=== PATIENT | male | born 1980 | race Caucasian/White ===

== ENCOUNTER 2016-06-30 01:11 | Emergency (ER) | payer MEDICAID ==
[2016-06-30] MEDS ORDERED: DEXAMETHASONE 10 MG/ML VIAL PO STA (01:42)
[2016-06-30] MEDS ORDERED: ALBUTEROL 8 GM INHALER INH STA (01:42)
[2016-06-30] MEDS ORDERED: AZITHROMYCIN 250 MG TABLET PO STA (01:43)
[2016-06-30] MEDS ORDERED: DEXAMETHASONE 10 MG/ML VIAL ONE (01:48)
[2016-06-30] MEDS ORDERED: AZITHROMYCIN 250 MG TABLET PO ONE (01:48)
[2016-06-30] MEDS ORDERED: ALBUTEROL 8 GM INHALER INH ONE (01:48)
== END 2016-06-30 02:01 | disposition home or self-care (01) ==
DX: J45.901 Unspecified asthma with (acute) exacerbation (principal); H66.90 Otitis media, unspecified, unspecified ear; F17.200 Nicotine dependence, unspecified, uncomplicated
CPT/HCPCS: 99283; A9270

== ENCOUNTER 2016-11-30 18:03 | Emergency (ER) | payer MEDICAID ==
--- NOTE | 2016-11-30 18:46 | ED Physician Documentation ---
PD HPI MHE - History obtained from History obtained from: Patient - History of Present Illness Primary symptom: Other (36-year-old gentleman with history of moderate asthma presents with mild suicidal ideation without current plan and depression ongoing for 1 month due to social issues. No ongoing alcohol or drug use he says. Would like to be considered for voluntary hospitalization.) <Stevenson Verduzco - Last Filed: 11/30/16 18:45> <William Angel - Last Filed: 12/01/16 18:55> - Stated complaint Stated Complaint: MHE - Chief complaint Chief Complaint: MHE Review of Systems Ten Systems: 10 systems reviewed and negative Constitutional: reports: Reviewed and negative Nose: reports: Reviewed and negative Throat: reports: Reviewed and negative Cardiac: reports: Reviewed and negative <Stevenson Verduzco - Last Filed: 11/30/16 18:45> PD PAST MEDICAL HISTORY - Past Medical History Cardiovascular: None Respiratory: Asthma Neuro: None Endocrine/Autoimmune: None GI: None : None HEENT: None Psych: None Musculoskeletal: Chronic back pain Derm: None - Past Surgical History Past Surgical History: Yes General: Gastric surgery - Social History Does the pt smoke?: Yes Smoking Status: Current every day smoker Does the pt drink ETOH?: No Does the pt have substance abuse?: No - Family History Family history: reports: Non contributory - Immunizations Immunizations are current?: Yes - POLST Patient has POLST: No <Stevenson Verduzco - Last Filed: 11/30/16 18:45> <William Angel - Last Filed: 12/01/16 18:55> - Present Medications Home Medications: Ambulatory Orders Medication Instructions Recorded Confirmed Albuterol Sulf [Ventolin Hfa 1 - 2 puffs INH Q4HR PRN #1 inhaler 06/30/16 Inhaler] Levothyroxine Sodium [Synthroid] 150 mcg PO DAILY #30 tablet 12/01/16 - Allergies Allergies/Adverse Reactions: Allergies Allergy/AdvReac Type Severity Reaction Status Date / Time Sulfa (Sulfonamide Allergy Severe Respiratory Verified 11/30/16 18:10 Antibiotics) PD ED PE NORMAL - Vitals Vital signs reviewed: Yes - General General: Alert and oriented X 3, Other (Despondent with poor eye contact) - HEENT HEENT: PERRL, EOMI - Neck Neck: Supple, no meningeal sign, No bony TTP - Cardiac Cardiac: RRR, No murmur - Respiratory Respiratory: No respiratory distress, Clear bilaterally - Abdomen Abdomen: Soft, Non tender - Derm Derm: Normal color, Warm and dry - Extremities Extremities: No edema, No calf tenderness / cord - Neuro Neuro: Alert and oriented X 3, head waitress 2-12 intact, No motor deficit, No sensory deficit, Normal speech - Psych Psych: Normal affect, Other (Depressed) <Stevenson Verduzco - Last Filed: 11/30/16 18:45> - Vitals Vitals: Vital Signs - 24 hr 11/30/16 12/01/16 12/01/16 23:11 01:44 05:55 Temperature 36.8 C Heart Rate 57 L 60 59 L Respiratory 14 14 18 Rate Blood Pressure 104/49 L 131/65 H 125/71 O2 Saturation 97 98 97 12/01/16 10:50 Temperature Heart Rate 62 Respiratory 15 Rate Blood Pressure 114/62 O2 Saturation 99 Oxygen O2 Source Room air - Labs Labs: Laboratory Tests 11/30/16 11/30/16 11/30/16 18:45 19:00 19:00 WBC 6.9 RBC 4.85 Hgb 15.3 Hct 44.2 MCV 91.1 MCH 31.5 H MCHC 34.6 RDW 13.4 Plt Count 217 MPV 7.8 Neut # 4.6 Lymph # 1.6 [place] # 0.5 Eos # 0.2 Baso # 0.1 Absolute Nucleated RBC 0.00 Nucleated RBCs 0.0 Sodium 139 Potassium 3.9 Chloride 104 Carbon Dioxide 28 Anion Gap 7.0 BUN 13 Creatinine 1.0 Estimated GFR (MDRD) 84 L Glucose 101 H Calcium 9.5 Total Bilirubin 1.3 H AST 66 H ALT 120 H Alkaline Phosphatase 64 Total Protein 8.0 Albumin 4.6 Globulin 3.4 Albumin/Globulin Ratio 1.4 Lipase 23 TSH Thyroxine (T4) T3 Uptake Urine Color YELLOW Urine Clarity CLEAR Urine pH 6.0 Ur Specific [place] 1.015 Urine Protein NEGATIVE Urine Glucose (UA) NEGATIVE Urine Ketones NEGATIVE Urine Occult Blood NEGATIVE Urine Nitrite NEGATIVE Urine Bilirubin NEGATIVE Urine Urobilinogen 0.2 (NORMAL) Ur Leukocyte Esterase NEGATIVE Ur Microscopic Review NOT INDICATED Urine Culture Comments NOT INDICATED Urine Opiates Screen NEGATIVE Ur Oxycodone Screen NEGATIVE Urine Methadone Screen NEGATIVE Ur Propoxyphene Screen NEGATIVE Ur Barbiturates Screen NEGATIVE Ur Tricyclics Screen NEGATIVE Ur Phencyclidine Scrn NEGATIVE Ur Amphetamine Screen POSITIVE H U Methamphetamines Scrn POSITIVE H U Benzodiazepines Scrn NEGATIVE Urine Cocaine Screen NEGATIVE U Cannabinoids Screen NEGATIVE Ethyl Alcohol < 5.0 11/30/16 12/01/16 12/01/16 19:00 09:08 09:08 WBC RBC Hgb Hct MCV MCH MCHC RDW Plt Count MPV Neut # Lymph # [place] # Eos # Baso # Absolute Nucleated RBC Nucleated RBCs Sodium Potassium Chloride Carbon Dioxide Anion Gap BUN Creatinine Estimated GFR (MDRD) Glucose Calcium Total Bilirubin AST ALT Alkaline Phosphatase Total Protein Albumin Globulin Albumin/Globulin Ratio Lipase TSH 55.98 H Thyroxine (T4) 3.73 L T3 Uptake 41.9 Urine Color Urine Clarity Urine pH Ur Specific [place] Urine Protein Urine Glucose (UA) Urine Ketones Urine Occult Blood Urine Nitrite Urine Bilirubin Urine Urobilinogen Ur Leukocyte Esterase Ur Microscopic Review Urine Culture Comments Urine Opiates Screen Ur Oxycodone Screen Urine Methadone Screen Ur Propoxyphene Screen Ur Barbiturates Screen Ur Tricyclics Screen Ur Phencyclidine Scrn Ur Amphetamine Screen U Methamphetamines Scrn U Benzodiazepines Scrn Urine Cocaine Screen U Cannabinoids Screen Ethyl Alcohol PD MEDICAL DECISION MAKING <Stevenson Verduzco - Last Filed: 11/30/16 18:45> - ED course Complexity details: reviewed old records, reviewed results, re-evaluated patient , considered differential, d/w patient <William Angel - Last Filed: 12/01/16 18:55> - ED course ED course: 36-year-old gentleman with depression and vague suicidal ideation without current plan. Offered to discharge and to come back for social work in the morning he prefers to stay overnight for evaluation in the morning. No indication for involuntary hold or MHP evaluation at this juncture. (Stevenson Verduzco) 36 y/o male with a history of asthma and substance abuse recently has not felt well and has developed anger and feels like "I just want to take a hammer and beat someone's head" he notes this is no one specific and then he states he just wants to take a gun and shoot himself in the head. He has increased sleep and depression over the past 2 months and today he has a low T4 and a TSH of > 55. I have discussed treatment with the patient and he is receptive and states that he did do some treatment about 10 years ago when he got out of [place]way but he has been non-compliant since. The DCR was consulted in the case as the patient demonstrated homicidal ideation directed at his mother and has a prior history of arrest for assault. The patient has no specific plan and the DCR has arranged for urgent medication evaluation to be done in 3 days time. The patient is amenable to this and he is amenable to treatment of his thyroid condition and he would like to start some medication. (William Angel) Departure <Stevenson Verduzco - Last Filed: 11/30/16 18:45> <William Angel - Last Filed: 12/01/16 18:55> - Departure Disposition: 01 Home, Self Care Clinical Impression: Depression Qualifiers: Depression Type: unspecified Qualified Code(s): F32.9 - Major depressive disorder, single episode, unspecified Hypothyroidism Qualifiers: Hypothyroidism type: unspecified Qualified Code(s): E03.9 - Hypothyroidism, unspecified Condition: Stable Instructions: ED Hypothyroidism, ED Depression, ED Stress React Follow-Up: [facility] [Provider Group] Abdias Ramos MD [Physician No Access] - Prescriptions: Levothyroxine Sodium [Synthroid] 150 mcg PO DAILY #30 tablet Comments: Today your thyroid level is low and this can be a contributor to depression. Treatment is recommended with a pill every day and the improvement in symptoms can take about 2 weeks. Follow up with the clinic in one month for re- evaluation. Follow up with Dr. Ramos as planned for evaluation for medications for depression. Discharge Date/Time: 12/01/16 11:30
[2016-11-30 19:13] LABS: BILIRUBIN,URINE NEGATIVE (NEGATIVE)
[2016-11-30 19:15] LABS: UA CHARGE (STRIP ONLY) YES; UR CULTURE IF IND NOT INDICATED
[2016-11-30 19:15] LABS: BASOPHILS # (AUTO) 0.1 10^3/uL (0.0-0.1); BASOPHILS % (AUTO) 1.1 %; EOSINOPHILS # (AUTO) 0.2 10^3/uL (0.0-0.7); EOSINOPHILS % (AUTO) 2.4 %; HCT - HEMATOCRIT 44.2 % (42.0-52.0); HGB - HEMOGLOBIN 15.3 g/dL (14.0-18.0); LYMPHOCYTES # (AUTO) 1.6 10^3/uL (1.5-3.5); LYMPHOCYTES % (AUTO) 22.9 %; MEAN CORPUSCULAR HEMOGLOBIN 31.5 pg (27.0-31.0); MEAN CORPUSCULAR HGB CONC 34.6 g/dL (32.0-36.0); MEAN CORPUSCULAR VOLUME 91.1 fL (80.0-94.0); MEAN PLATELET VOLUME 7.8 fL (7.4-11.4); MONOCYTES # (AUTO) 0.5 10^3/uL (0.0-1.0); NEUTROPHILS # (AUTO) 4.6 10^3/uL (1.5-6.6); NEUTROPHILS % (AUTO) 66.6 %; RED BLOOD COUNT 4.85 10^6/uL (4.70-6.10); RED CELL DISTRIBUTION WIDTH 13.4 % (12.0-15.0); UNCORRECTED WHITE BLOOD COUNT 6.9 x10^3/uL; WHITE BLOOD COUNT 6.9 x10^3/uL (4.8-10.8)
[2016-11-30 19:22] LABS: ALBUMIN/GLOBULIN RATIO 1.4 (1.0-2.2); BILIRUBIN,TOTAL 1.3 mg/dL (0.2-1.0); BUN - BLOOD UREA NITROGEN 13 mg/dL (6-20); CALCIUM 9.5 mg/dL (8.5-10.3); CARBON DIOXIDE - CO2 28 mmol/L (21-32); CHLORIDE 104 mmol/L (101-111); GFR - MDRD 84 (>89); GLUCOSE 101 mg/dL (70-100); LIPASE 23 U/L (22-51); POTASSIUM 3.9 mmol/L (3.5-5.0); SODIUM 139 mmol/L (135-145)
[2016-12-01 10:51] VITALS: BP 114/62
== END 2016-12-01 11:30 | disposition home or self-care (01) ==
LOC: ED 18:03
DX: F32.9 Major depressive disorder, single episode, unspecified (principal); R45.851 Suicidal ideations; R45.850 Homicidal ideations; E03.9 Hypothyroidism, unspecified; J45.909 Unspecified asthma, uncomplicated; F19.10 Other psychoactive substance abuse, uncomplicated; Z98.84 Bariatric surgery status; F17.200 Nicotine dependence, unspecified, uncomplicated
CPT/HCPCS: 36415; 80053; 80306; 80320; 81001; 81003; 83690; 84436; 84443; 84479; 85025; 87086; 99283; 99284

== ENCOUNTER 2016-12-13 22:19 | Outpatient (CLI) | payer MEDICAID | END 2016-12-13 22:20 | disposition critical access hospital (66) | LOC: EMS 22:19 | PROVIDERS: ATTEND Surgery | DX: R21 Rash and other nonspecific skin eruption (principal); R11.2 Nausea with vomiting, unspecified; R51 Headache; F41.9 Anxiety disorder, unspecified | CPT/HCPCS: A0425; A0429 ==

== ENCOUNTER 2016-12-13 22:38 | Emergency (ER) | payer MEDICAID ==
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
[2016-12-14 07:03] VITALS: BP 125/65
== END 2016-12-14 07:04 | disposition home or self-care (01) ==
LOC: EDUNIT# → ED 22:38
DX: R51 Headache (principal); F32.9 Major depressive disorder, single episode, unspecified; T43.595A Adverse effect of other antipsychotics and neuroleptics, initial encounter; J45.909 Unspecified asthma, uncomplicated; F17.200 Nicotine dependence, unspecified, uncomplicated
CPT/HCPCS: 99283; 99284

== ENCOUNTER 2017-05-06 15:04 | Emergency (ER) | payer MEDICAID ==
[2017-05-06] MEDS ORDERED: IBUPROFEN 400 MG TABLET PO STA (15:32)
[2017-05-06] MEDS ORDERED: SILVER SULFADIAZINE CREAM 25 GM TUBE TOP STA (15:32)
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
[2017-05-06] MEDS ORDERED: IBUPROFEN 400 MG TABLET PO ONE (15:49)
[2017-05-06] MEDS ORDERED: SILVER SULFADIAZINE CREAM 25 GM TUBE TOP ONE (15:49)
[2017-05-06 16:17] VITALS: BP 118/74
== END 2017-05-06 16:15 | disposition home or self-care (01) ==
LOC: ED 15:04
DX: T23.211A Burn of second degree of right thumb (nail), initial encounter (principal); T59.891A Toxic effect of other specified gases, fumes and vapors, accidental (unintentional), initial encounter; T31.0 Burns involving less than 10% of body surface; F17.200 Nicotine dependence, unspecified, uncomplicated
CPT/HCPCS: 99282; 99283; A9270

== ENCOUNTER 2017-06-04 20:42 | Outpatient (CLI) | payer MEDICAID | END 2017-06-04 20:43 | disposition critical access hospital (66) | LOC: EMS 20:42 | PROVIDERS: ATTEND Surgery | DX: R53.1 Weakness (principal); R05 Cough | CPT/HCPCS: A0425; A0429 ==

== ENCOUNTER 2017-06-04 20:59 | Emergency (ER) | payer MEDICAID ==
[2017-06-04 21:09] VITALS: BP 118/59
--- NOTE | 2017-06-04 21:20 | ED Physician Documentation ---
PD HPI URI - Stated complaint Stated Complaint: COUGH/FEVER - Chief complaint Chief Complaint: Resp - History obtained from History obtained from: Patient, EMS - History of Present Illness Timing - onset: How many weeks ago (1) Timing details: Gradual onset, Still present Associated symptoms: Fever, Chills, Productive cough Similar symptoms before: Work up / diagnostics Recently seen: Not recently seen - Additional information Additional information: patient is a 36 year old male with a history of asthma who is presenting to the emergency department for fever and cough. patient states that he lives under a building and has a hard time staying warm and dry. patient states that he has had tactile fevers and productive cough over the last week. patient has a history of asthma mbut not no active wheezing. Review of Systems Constitutional: reports: Fever, Chills Eyes: denies: Photophobia Ears: denies: Ear pain, Drainage/discharge Nose: reports: Congestion Throat: denies: Sore throat Cardiac: denies: Chest pain / pressure, Palpitations Respiratory: reports: Cough. denies: Hemoptysis, Wheezing GI: denies: Nausea, Vomiting : denies: Dysuria, Frequency, Hesitancy Skin: denies: Rash, Lesions, Abrasion (s) Musculoskeletal: denies: Neck pain, Back pain, Extremity pain Neurologic: denies: Generalized weakness, Focal weakness Immunocompromised: denies: Immunocompromised PD PAST MEDICAL HISTORY - Past Medical History Past Medical History: Yes Cardiovascular: None Respiratory: Asthma Neuro: None Endocrine/Autoimmune: None GI: None : None HEENT: None Psych: None Musculoskeletal: Chronic back pain Derm: None - Past Surgical History Past Surgical History: Yes General: Gastric surgery - Present Medications Home Medications: Ambulatory Orders Medication Instructions Recorded Confirmed Albuterol Sulf [Ventolin Hfa 1 - 2 puffs INH Q4HR PRN #1 inhaler 06/30/16 Inhaler] Benzonatate [Tessalon Perle] 100 mg PO TID #14 capsule 06/04/17 - Allergies Allergies/Adverse Reactions: Allergies Allergy/AdvReac Type Severity Reaction Status Date / Time Sulfa (Sulfonamide Allergy Severe Respiratory Verified 06/04/17 21:21 Antibiotics) - Social History Does the pt smoke?: Yes Smoking Status: Current every day smoker Does the pt drink ETOH?: No Does the pt have substance abuse?: No - Immunizations Immunizations are current?: Yes - POLST Patient has POLST: No PD ED PE NORMAL - Vitals Vital signs reviewed: Yes - General General: Alert and oriented X 3, No acute distress - HEENT HEENT: Atraumatic, PERRL - Neck Neck: Supple, no meningeal sign, No JVD - Cardiac Cardiac: RRR, No murmur, No rub - Respiratory Respiratory: No respiratory distress, Clear bilaterally - Abdomen Abdomen: Soft, Non tender, Non distended - Derm Derm: Normal color, Warm and dry, No rash - Extremities Extremities: No deformity, Normal ROM s pain, No edema - Neuro Neuro: Alert and oriented X 3, No motor deficit, Normal speech - Psych Psych: Normal mood PD ED PE EXPANDED - Respiratory Respiratory: No: Labored, Stridor, Accessory mm use, Wheezing Results - Vitals Vitals: Vital Signs - 24 hr 06/04/17 21:08 Temperature 37.2 C Heart Rate 91 Respiratory 20 Rate Blood Pressure 118/59 L O2 Saturation 98 Oxygen O2 Source Room air - EKG (time done) 2111 Rate: Rate (enter#) (91) Rhythm: NSR [place]: Normal Intervals: Normal IA QRS: Normal Ischemia: Normal ST segments Compare to prior EKG: Unchanged from prior EKG Computer interpretation: Agree with computer - Labs Labs: Laboratory Tests 06/04/17 06/04/17 21:21 21:21 WBC 6.1 RBC 4.71 Hgb 14.8 Hct 42.6 MCV 90.5 MCH 31.4 H MCHC 34.7 RDW 12.9 Plt Count 190 MPV 7.9 Neut # 2.7 Lymph # 2.2 [place] # 0.8 Eos # 0.3 Baso # 0.1 Absolute Nucleated RBC 0.00 Nucleated RBC % 0.0 Sodium 138 Potassium 3.5 Chloride 102 Carbon Dioxide 27 Anion Gap 9.0 BUN 14 Creatinine 1.2 Estimated GFR (MDRD) 68 L Glucose 85 Calcium 8.6 Total Bilirubin 0.8 AST 64 H ALT 99 H Alkaline Phosphatase 70 Total Protein 7.2 Albumin 3.9 Globulin 3.3 Albumin/Globulin Ratio 1.2 Lipase 24 - Rads (name of study) chest x-ray Radiology: EMP read indepedently (no acute disease process) PD MEDICAL DECISION MAKING - ED course Complexity details: reviewed old records, reviewed results, re-evaluated patient , considered differential, d/w patient ED course: patient was seen and examined at bedside. Patient's vital signs are within normal limits. labs were drawn. ekg was performed and within normal limits. chest x-ray showed no abnormalities. patient was treated with tessalon perle. patient required no further work and was stable for discharge with outpatient follow up. Departure - Departure Disposition: 01 Home, Self Care Clinical Impression: Upper respiratory infection Condition: Good Instructions: ED Viral Syndrome Follow-Up: primary,care provider [Other] - As Needed Prescriptions: Benzonatate [Tessalon Perle] 100 mg PO TID #14 capsule Comments: Your diagnostics today were within normal limits. there were no major abnormalities on your blood work or chest x-ray. You can take over the counter cough and cold medicine. You should follow up with the clinic if your symptoms persist. You may return to the emergency department at anytime for new worsening or uncontrollable symptoms.
[2017-06-04 21:27] LABS: BASOPHILS # (AUTO) 0.1 10^3/uL (0.0-0.1); BASOPHILS % (AUTO) 1.2 %; EOSINOPHILS # (AUTO) 0.3 10^3/uL (0.0-0.7); EOSINOPHILS % (AUTO) 5.4 %; HGB - HEMOGLOBIN 14.8 g/dL (14.0-18.0); LYMPHOCYTES # (AUTO) 2.2 10^3/uL (1.5-3.5); LYMPHOCYTES % (AUTO) 36.2 %; MEAN CORPUSCULAR HEMOGLOBIN 31.4 pg (27.0-31.0); MEAN CORPUSCULAR HGB CONC 34.7 g/dL (32.0-36.0); MEAN CORPUSCULAR VOLUME 90.5 fL (80.0-94.0); MEAN PLATELET VOLUME 7.9 fL (7.4-11.4); MONOCYTES # (AUTO) 0.8 10^3/uL (0.0-1.0); MONOCYTES % (AUTO) 13.3 %; NEUTROPHILS # (AUTO) 2.7 10^3/uL (1.5-6.6); NEUTROPHILS % (AUTO) 43.9 %; PLT - PLATELET COUNT 190 10^3/uL (130-450); RED BLOOD COUNT 4.71 10^6/uL (4.70-6.10); RED CELL DISTRIBUTION WIDTH 12.9 % (12.0-15.0); WHITE BLOOD COUNT 6.1 x10^3/uL (4.8-10.8)
[2017-06-04] MEDS ORDERED: BENZONATATE 100 MG CAPSULE PO STA (21:35)
[2017-06-04 21:39] LABS: ALBUMIN 3.9 g/dL (3.2-5.5); ALBUMIN/GLOBULIN RATIO 1.2 (1.0-2.2); BILIRUBIN,TOTAL 0.8 mg/dL (0.2-1.0); CALCIUM 8.6 mg/dL (8.5-10.3); CREATININE 1.2 mg/dL (0.6-1.2); TOTAL PROTEIN 7.2 g/dL (6.7-8.2)
--- NOTE | 2017-06-04 21:40 | XRAY Report ---
EXAM: CHEST RADIOGRAPHY EXAM DATE: 06/04/2017 09:28 PM. CLINICAL HISTORY: Fever cough. COMPARISON: 01/22/2016 chest x-ray. TECHNIQUE: 1 view. FINDINGS: Lungs/Pleura: No focal opacities evident. No pleural effusion. No pneumothorax. Mediastinum: Within exam limitations, the cardiomediastinal contour is normal. Other: None. IMPRESSION: Normal single view chest. [facility] Referring Provider Line: [phone] SITE ID: [id number]
== END 2017-06-04 21:52 | disposition home or self-care (01) ==
LOC: EDUNIT# → ED 20:59
DX: J06.9 Acute upper respiratory infection, unspecified (principal); F17.200 Nicotine dependence, unspecified, uncomplicated
CPT/HCPCS: 36415; 71045; 80053; 83690; 85025; 93005; 99283; A9270

== ENCOUNTER 2017-07-29 11:28 | Outpatient (CLI) | payer MEDICAID | END 2017-07-29 11:29 | disposition critical access hospital (66) | LOC: EMS 11:28 | PROVIDERS: ATTEND Surgery | DX: M54.2 Cervicalgia (principal) | CPT/HCPCS: A0425; A0429 ==

== ENCOUNTER 2017-07-29 11:47 | Emergency (ER) | payer MEDICAID ==
--- NOTE | 2017-07-29 12:11 | ED Physician Documentation ---
History of Present Illness - Stated complaint Stated Complaint: NECK PX - Chief complaint Chief Complaint: General - History obtained from History obtained from: Patient - History of Present Illness Timing: Today (Presents with neck pain today. He said he slept all day yesterday and generally feels ill but denies fevers or chills specifically, just fatigue he woke up this morning with right-sided neck pain, there was no trauma. He does have a history of heroin abuse and has active track diamond in the right antecubital fossa and says he last used a month ago but not more recently. He declines pain medications for this.) Review of Systems Ten Systems: 10 systems reviewed and negative Constitutional: reports: Fatigue. denies: Fever, Chills Throat: denies: Sore throat Cardiac: denies: Chest pain / pressure, Palpitations Respiratory: reports: Cough. denies: Dyspnea PD PAST MEDICAL HISTORY - Past Medical History Cardiovascular: None Respiratory: Asthma Neuro: None Endocrine/Autoimmune: None GI: None : None HEENT: None Psych: None Musculoskeletal: Chronic back pain Derm: None - Past Surgical History Past Surgical History: Yes General: Gastric surgery - Present Medications Home Medications: Ambulatory Orders Medication Instructions Recorded Confirmed Albuterol Sulf [Ventolin Hfa 1 - 2 puffs INH Q4HR PRN #1 inhaler 06/30/16 Inhaler] Albuterol Sulfate [Proventil Hfa 1 - 2 puffs INH Q4H PRN #1 inhaler 06/04/17 Inhaler] Benzonatate [Tessalon Perle] 100 mg PO TID #14 capsule 06/04/17 - Allergies Allergies/Adverse Reactions: Allergies Allergy/AdvReac Type Severity Reaction Status Date / Time Sulfa (Sulfonamide Allergy Severe Respiratory Verified 07/29/17 11:54 Antibiotics) - Social History Does the pt smoke?: Yes Smoking Status: Current every day smoker Does the pt drink ETOH?: No Does the pt have substance abuse?: No - Family History Family history: reports: Non contributory - Immunizations Immunizations are current?: Yes - POLST Patient has POLST: No PD ED PE NORMAL - Vitals Vital signs reviewed: Yes - General General: Alert and oriented X 3, Other (Seems tired, but cooperative.) - HEENT HEENT: PERRL, EOMI - Neck Neck: Supple, no meningeal sign, No bony TTP, Other (His neck is supple and there is no midline tenderness, he is tender over the right sternocleidomastoid. 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 Normal sensation throughout the upper extremities.) Eye Opening: Spontaneous Motor: Obeys Commands Verbal: Oriented GCS Score: 15 - Psych Psych: Normal mood, Normal affect Results - Vitals Vitals: Vital Signs - 24 hr 07/29/17 11:52 Temperature 36.8 C Heart Rate 78 Respiratory 18 Rate Blood Pressure 109/68 O2 Saturation 97 Oxygen O2 Source Room air - Labs Labs: Laboratory Tests 07/29/17 07/29/17 07/29/17 12:45 12:45 12:45 WBC 4.1 L RBC 4.96 Hgb 15.4 Hct 44.2 MCV 89.2 MCH 31.1 H MCHC 34.9 RDW 13.2 Plt Count 201 MPV 8.3 Neut # 2.1 Lymph # 1.2 L Wayne # 0.7 Eos # 0.0 Baso # 0.0 Absolute Nucleated RBC 0.00 Nucleated RBC % 0.0 ESR 5 Sodium 133 L Potassium 3.7 Chloride 100 L Carbon Dioxide 25 Anion Gap 8.0 BUN 28 H Creatinine 1.1 Estimated GFR (MDRD) 75 L Glucose 97 Calcium 8.7 Total Bilirubin 1.2 H AST 84 H ALT 100 H Alkaline Phosphatase 70 C-Reactive Protein 1.6 H Total Protein 7.7 Albumin 4.1 Globulin 3.6 Albumin/Globulin Ratio 1.1 Lipase 17 L - Rads (name of study) C spine CT Radiology: EMP read contemporaneously (No acute disease, there are some facet changes.) PD MEDICAL DECISION MAKING - ED course ED course: 37-year-old gentleman presents with acute neck pain that seems like right sternocleidomastoid strain given the recent IV drug use, labs were done to risk stratify for an infectious etiology and there is really no evidence of an infectious etiology based on this. He does have elevated liver enzymes, this is not new looking at old labs and he was advised to follow-up with his physician for hepatitis and HIV testing. He declined pain medications here. Departure - Departure Disposition: 01 Home, Self Care Clinical Impression: Neck pain Condition: Good Record reviewed to determine appropriate education?: Yes Instructions: ED Neck Pain No Trauma Comments: Call your doctor to arrange a follow-up appointment, make the next available appointment. In the interim, return anytime if worse or if new symptoms develop. Also talk with your doctor about hepatitis and HIV testing given the elevation in your liver enzymes. Avoid alcohol.
--- NOTE | 2017-07-29 12:45 | CT Report ---
EXAM: CT CERVICAL SPINE WITHOUT CONTRAST DATE: 07/29/2017 12:28 PM. HISTORY: Neck pain this morning. No known injury. COMPARISONS: CT neck with contrast 11/19/2014. TECHNIQUE: Thin-section axial images were acquired of the cervical spine without contrast. Post-proce ssing: Coronal and sagittal reformats. Other: None. In accordance with CT protocol optimization, one or more of the following dose reduction techniques w ere utilized for this exam: automated exposure control, adjustment of mA and/or KV based on patient s ize, or use of iterative reconstructive technique. FINDINGS: Alignment: No scoliosis or spondylolisthesis. Bones: No fracture or bone lesion. Interspace Levels/Facets: No disk height loss. There are minimal degenerative disk changes at the C6-C7 and C7-T1 levels. Musculature: Normal. No fatty atrophy. Other: The paravertebral and prevertebral soft tissues are unremarkable. The lung apices are clear. IMPRESSION: No acute osseous abnormality of the cervical spine. There are minimal degenerative facet changes of t he lower cervical spine. [facility] Referring Provider Line: [phone] SITE ID: [id number]
--- NOTE | 2017-07-29 12:45 | CT Preliminary Report ---
Exam: CT CERVICAL SPINE W/O IMPRESSION: No acute osseous abnormality of the cervical spine. There are minimal degenerative facet changes of t he lower cervical spine. [facility] SITE ID: [id number]
[2017-07-29 13:06] LABS: EOSINOPHILS % (AUTO) 0.9 %; HGB - HEMOGLOBIN 15.4 g/dL (14.0-18.0); LYMPHOCYTES # (AUTO) 1.2 10^3/uL (1.5-3.5); MEAN CORPUSCULAR HEMOGLOBIN 31.1 pg (27.0-31.0); MEAN CORPUSCULAR HGB CONC 34.9 g/dL (32.0-36.0); MEAN CORPUSCULAR VOLUME 89.2 fL (80.0-94.0); MEAN PLATELET VOLUME 8.3 fL (7.4-11.4); MONOCYTES # (AUTO) 0.7 10^3/uL (0.0-1.0); MONOCYTES % (AUTO) 17.6 %; NEUTROPHILS # (AUTO) 2.1 10^3/uL (1.5-6.6); NEUTROPHILS % (AUTO) 51.5 %; PLT - PLATELET COUNT 201 10^3/uL (130-450); RED BLOOD COUNT 4.96 10^6/uL (4.70-6.10); RED CELL DISTRIBUTION WIDTH 13.2 % (12.0-15.0); WHITE BLOOD COUNT 4.1 x10^3/uL (4.8-10.8)
[2017-07-29 13:13] LABS: ALBUMIN 4.1 g/dL (3.2-5.5); ALBUMIN/GLOBULIN RATIO 1.1 (1.0-2.2); BILIRUBIN,TOTAL 1.2 mg/dL (0.2-1.0); CALCIUM 8.7 mg/dL (8.5-10.3); CREATININE 1.1 mg/dL (0.6-1.2); CRP - C-REACTIVE PROTEIN 1.6 mg/dL (0-1.0); TOTAL PROTEIN 7.7 g/dL (6.7-8.2)
[2017-07-29 14:01] VITALS: BP 106/87
== END 2017-07-29 14:16 | disposition home or self-care (01) ==
LOC: EDUNIT# → ED 11:47
DX: M54.2 Cervicalgia (principal); R74.8 Abnormal levels of other serum enzymes; F17.200 Nicotine dependence, unspecified, uncomplicated
CPT/HCPCS: 36415; 72125; 80053; 83690; 85025; 85651; 86140; 99283

== ENCOUNTER 2017-07-31 18:55 | Outpatient (CLI) | payer SELFPAY | END 2017-07-31 23:59 | disposition EMS.NT | LOC: EMS 18:55 | PROVIDERS: ATTEND Surgery | DX: R31.9 Hematuria, unspecified (principal) ==

== ENCOUNTER 2017-10-01 00:10 | Emergency (ER) | payer MEDICAID ==
[2017-10-01] MEDS ORDERED: LIDOCAINE 2%-EPI 1:100000 20 ML MDV SUBQ STA (00:18)
[2017-10-01 00:25] VITALS: BP 133/82
[2017-10-01] MEDS ORDERED: ceFAZolin 1 GM VIAL IM STA (00:50)
[2017-10-01] MEDS ORDERED: HYDROcod/ACET 5/325 Prepack 4 PO STA (01:04)
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
--- NOTE | 2017-10-01 01:09 | XRAY Preliminary Report ---
Exam: XR TIB/FIB LT IMPRESSION: 1. Soft tissue defect in the dorsomedial distal left leg. No radiopaque foreign body. 2. No fracture or malalignment. [facility] SITE ID: [id number]
--- NOTE | 2017-10-01 09:45 | XRAY Report ---
EXAM: LEFT TIBIA/FIBULA RADIOGRAPHY EXAM DATE: 10/01/2017 12:45 AM. CLINICAL HISTORY: Laceration, lower medial left leg, unknown mechanism. COMPARISON: None. TECHNIQUE: 2 views. FINDINGS: Bones: Normal. No fracture or bone lesion. Joints: The visualized knee and ankle joints are normal. No effusions. Soft Tissues: Soft tissue defect in the dorsomedial left distal leg is noted. No radiopaque foreign b odies. IMPRESSION: 1. Soft tissue defect in the dorsomedial distal left leg. No radiopaque foreign body. 2. No fracture or malalignment. [facility] Referring Provider Line: [phone] SITE ID: [id number]
== END 2017-10-01 01:20 | disposition home or self-care (01) ==
LOC: ED 00:10
DX: S81.812A Laceration without foreign body, left lower leg, initial encounter (principal); X58.XXXA Exposure to other specified factors, initial encounter; Y93.55 Activity, bike riding; F17.200 Nicotine dependence, unspecified, uncomplicated
CPT/HCPCS: 12002; 96372; 99283

== ENCOUNTER 2017-10-20 14:55 | Emergency (ER) | payer MEDICAID ==
--- NOTE | 2017-10-20 15:35 | ED Physician Documentation ---
PD HPI WOUND RECHECK - Stated complaint Stated Complaint: STAPLE REMOVAL - Chief complaint Chief Complaint: Ext Problem - Histroy obtained from History obtained from: Patient - History of Present Illness Location: Left Lower Extremity (upper heel) Timing - onset: How many weeks ago (3) Associated symptoms: Redness (mild at edges). No: Fever, Drainage Recently seen: Emergency Dept (3 weeks ago with tobi placed in wound. He has not been using any ointment or such. Here for staple removal.) Review of Systems Constitutional: denies: Fever, Chills Neurologic: denies: Focal weakness, Numbness PD PAST MEDICAL HISTORY - Past Medical History Cardiovascular: None Respiratory: Asthma Endocrine/Autoimmune: None GI: None : None HEENT: None Psych: None Musculoskeletal: Chronic back pain Derm: None - Past Surgical History Past Surgical History: Yes General: Gastric surgery - Present Medications Home Medications: Ambulatory Orders Medication Instructions Recorded Confirmed Albuterol Sulf [Ventolin Hfa 1 - 2 puffs INH Q4HR PRN #1 inhaler 06/30/16 Inhaler] Albuterol Sulfate [Proventil Hfa 1 - 2 puffs INH Q4H PRN #1 inhaler 06/04/17 Inhaler] - Allergies Allergies/Adverse Reactions: Allergies Allergy/AdvReac Type Severity Reaction Status Date / Time Sulfa (Sulfonamide Allergy Severe Respiratory Verified 10/20/17 15:14 Antibiotics) - Social History Does the pt smoke?: Yes Smoking Status: Current every day smoker Does the pt drink ETOH?: No Does the pt have substance abuse?: No - Immunizations Immunizations are current?: Yes Immunizations: TDAP current <10years - POLST Patient has POLST: No PD ED PE NORMAL - Vitals Vital signs reviewed: Yes - General General: Alert and oriented X 3, Well developed/nourished, Other (somewhat anxious) - Derm Derm: Normal color, Warm and dry - Extremities Extremities: Other (left lower calf/upper heel area with tobi in place. no drainage. some redness at edges and the edges are dry. ) Results - Vitals Vitals: Vital Signs - 24 hr 10/20/17 10/20/17 15:09 15:55 Temperature 36.3 C L 36.6 C Heart Rate 89 85 Respiratory 14 16 Rate Blood Pressure 145/88 H 134/87 H O2 Saturation 99 97 Oxygen O2 Source Room air PD MEDICAL DECISION MAKING - ED course Complexity details: considered differential (slight redness at edges looks more irritation and could related to tobi being in 3 weeks. ), d/w patient Departure - Departure Disposition: 01 Home, Self Care Clinical Impression: Encounter for staple removal Condition: Stable Record reviewed to determine appropriate education?: Yes Instructions: ED Stap Removal No Complication Comments: Keep the area clean and dry for a few days. Allow this Steri-Strips to fall off on their own. After that cleanse it with soap and water and apply any ointment to the area for the duration of the full healing of the wound. Recheck if problems develop. There is some slight redness around the wound that looks more like irritation and not really infection. This often will clear up once the tobi are out as a can get a little irritated if they are in longer. Discharge Date/Time: 10/20/17 15:55
[2017-10-20 16:02] VITALS: BP 134/87
== END 2017-10-20 15:55 | disposition home or self-care (01) ==
LOC: ED 14:55
DX: S81.812D Laceration without foreign body, left lower leg, subsequent encounter (principal); W45.8XXD Other foreign body or object entering through skin, subsequent encounter; F17.200 Nicotine dependence, unspecified, uncomplicated
CPT/HCPCS: 99281; 99283

== ENCOUNTER 2018-08-09 18:56 | Emergency (ER) | payer SELFPAY | END 2018-08-09 18:58 | disposition left against medical advice (07) | LOC: ED 18:56 | DX: Z53.21 Procedure and treatment not carried out due to patient leaving prior to being seen by health care provider (principal) ==

== ENCOUNTER 2019-10-28 16:00 | Emergency (ER) | payer SELFPAY ==
[2019-10-28 16:07] VITALS: BP 160/78
[2019-10-28] MEDS ORDERED: PROPARACAINE 0.5% OPHTH DROPS 15 ML EACHEYE STA (16:39)
[2019-10-28] MEDS ORDERED: TETANUS/DIPHTHERIA/PERTUSSIS 0.5 ML SYRINGE IM ONE (17:09)
--- NOTE | 2019-10-28 17:09 | ED Physician Documentation ---
PD HPI OPHTHO - Stated complaint Stated Complaint: LT EYE INJ - Chief complaint Chief Complaint: Heent - History obtained from History obtained from: Patient - History of Present Illness Timing - onset: How many days ago (2) Timing - duration: Days (2) Location: Left Quality / character: Aching Associated symptoms: FB sensation Contributing factors: FB. No: Wears glasses, Wears contacts - Additional information Additional information: states grinding metal and piece in the L eye. Review of Systems Constitutional: denies: Fever Nose: denies: Rhinorrhea / runny nose, Congestion Throat: denies: Sore throat Respiratory: denies: Cough GI: denies: Vomiting, Diarrhea Skin: denies: Rash Neurologic: denies: Headache PD PAST MEDICAL HISTORY - Past Medical History Cardiovascular: None Respiratory: Asthma Endocrine/Autoimmune: None GI: None : None HEENT: None Psych: None Musculoskeletal: Chronic back pain Derm: None - Past Surgical History Past Surgical History: Yes General: Gastric surgery - Present Medications Home Medications: Ambulatory Orders Medication Instructions Recorded Confirmed Albuterol Sulfate [Proventil Hfa 1 - 2 puffs INH Q4H PRN #1 inhaler 06/04/17 Inhaler] Polymyxin B/Trimeth Ophth Drop 1 drops LEFTEYE Q3H 7 Days #1 10/28/19 [Polytrim Ophth Drops] bottle - Allergies Allergies/Adverse Reactions: Allergies Allergy/AdvReac Type Severity Reaction Status Date / Time Sulfa (Sulfonamide Allergy Severe Respiratory Verified 10/28/19 16:03 Antibiotics) - Social History Does the pt smoke?: Yes Smoking Status: Current every day smoker Does the pt drink ETOH?: No Does the pt have substance abuse?: No - Immunizations Immunizations are current?: Yes Immunizations: TDAP current <10years - POLST Patient has POLST: No PD ED PE NORMAL - Vitals Vital signs reviewed: Yes - General General: Alert and oriented X 3, No acute distress - HEENT HEENT: Moist mucous membranes, Other (Left eye a small metallic object in the inferomedial quadrant of the cornea. small rust ring. normal pupils. ) - Derm Derm: Warm and dry, No rash - Neuro Neuro: Alert and oriented X 3 Results - Vitals Vitals: Vital Signs - 24 hr 10/28/19 16:03 Temperature 36.6 C Heart Rate 80 Respiratory 14 Rate Blood Pressure 160/78 H O2 Saturation 99 Oxygen O2 Source Room air Procedures - FB removal FB location: Other (conjunctival) FB removal preparation: Other (proparacaine) Removal method: Other (18g needle) FB removal aftercare: No complications (rust ring present.), Removed successfully PD MEDICAL DECISION MAKING - ED course Complexity details: considered differential, d/w patient ED course: Tdap given. FB removed. Small rust ring present. Will place on ophthalmic antibiotics. Patient will follow-up with ophthalmology early next week for repeat evaluation. Patient counseled regarding signs and symptoms for which I believe and urgent re-evaluation would be necessary. Patient with good understanding of and agreement to plan and is comfortable going home at this time This document was made in part using voice recognition software. While efforts are made to proofread this document, sound alike and grammatical errors may occur. Departure - Departure Disposition: 01 Home, Self Care Clinical Impression: Foreign body in conjunctival sac, left eye, initial encounter Condition: Good Instructions: ED Foreign Body Cornea W Rust Ring Follow-Up: Oscar Leger MD [Provider Admit Priv/Credential] - Within 3 Days Prescriptions: Polymyxin B/Trimeth Ophth Drop [Polytrim Ophth Drops] 1 drops LEFTEYE Q3H 7 Days #1 bottle Comments: Use the antibiotic drops as prescribed. Follow-up with ophthalmology next week, preferably Thursday or Thursday to have the eye reevaluated. They may need to remove the rust ring. You were given a tetanus shot today as well. Discharge Date/Time: 10/28/19 17:25
== END 2019-10-28 17:25 | disposition home or self-care (01) ==
LOC: ED 16:00
DX: T15.12XA Foreign body in conjunctival sac, left eye, initial encounter (principal); X58.XXXA Exposure to other specified factors, initial encounter; Y93.89 Activity, other specified; Z23 Encounter for immunization; F17.200 Nicotine dependence, unspecified, uncomplicated
CPT/HCPCS: 65205; 99283; J3490

== ENCOUNTER 2023-07-13 13:29 | Emergency (ER) | payer MEDICAID ==
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
[2023-07-13] MEDS: KETOROLAC 15 MG/ML VIAL IVP STA (14:38)
[2023-07-13] MEDS: BENZONATATE 100 MG CAPSULE PO STA (14:38)
[2023-07-13 14:47] LABS: B. PARAPERTUSSIS- RESP PCR PAN NOT DETECTED; B. PERTUSSIS- RESP PCR PANEL NOT DETECTED; C. PNEUMONIAE- RESP PCR PANEL NOT DETECTED; CORONAVIRUS 229E-RESP PCR NOT DETECTED; CORONAVIRUS HKU1-RESP PCR NOT DETECTED; CORONAVIRUS NL63-RESP PCR NOT DETECTED; CORONAVIRUS OC43-RESP PCR NOT DETECTED; HUMAN METAPNEUMOVIRUS NOT DETECTED; INFLUENZA A- RESP PCR PANEL NOT DETECTED; INFLUENZA B - RESP PCR PANEL NOT DETECTED; M. PNEUMONIAE- RESP PCR PANEL NOT DETECTED; PARAINFLUENZA VIRUS 1 NOT DETECTED; PARAINFLUENZA VIRUS 2 NOT DETECTED; PARAINFLUENZA VIRUS 3 NOT DETECTED; PARAINFLUENZA VIRUS 4 NOT DETECTED; RHINOVIRUS/ENTEROVIRUS NOT DETECTED; RSV- RESP PCR PANEL NOT DETECTED; SARS-CoV-2 -RESP PCR PANEL NOT DETECTED
--- NOTE | 2023-07-13 15:07 | XRAY Report ---
PROCEDURE: Chest 2V INDICATIONS: cough/SOA TECHNIQUE: 2 views of the chest were acquired. COMPARISON: None. FINDINGS: Surgical changes and devices: None. Lungs and pleura: Left basilar and lingula consolidation. Mediastinum: Mediastinal contours appear normal. Heart size is normal. Bones and chest wall: No suspicious bony lesions. Overlying soft tissues appear unremarkable. IMPRESSION: Multifocal pneumonia of the left lung. Recommend follow-up x-ray in 1-2 months to ensure resolution. Reviewed by: Gatito Bullock MD on 07/13/2023 3:06 PM PST Approved by: Gatito Bullock MD on 07/13/2023 3:06 PM PST Station ID: [id number]
[2023-07-13] MEDS: ALBUTEROL 1 PUFF INH STA (15:23)
[2023-07-13 15:28] LABS: BASOPHILS % (AUTO) 0.2 %; EOSINOPHILS # (AUTO) 0.3 10^3/uL (0.0-0.7); EOSINOPHILS % (AUTO) 2.5 %; HCT - HEMATOCRIT 38.6 % (42.0-52.0); HGB - HEMOGLOBIN 12.6 g/dL (14.0-18.0); LYMPHOCYTES # (AUTO) 2.2 10^3/uL (1.5-3.5); LYMPHOCYTES % (AUTO) 16.8 %; MEAN CORPUSCULAR HEMOGLOBIN 30.2 pg (27.0-31.0); MEAN CORPUSCULAR HGB CONC 32.6 g/dL (32.0-36.0); MEAN CORPUSCULAR VOLUME 92.6 fL (80.0-94.0); MEAN PLATELET VOLUME 10.1 fL (7.4-11.4); MONOCYTES # (AUTO) 1.3 10^3/uL (0.0-1.0); MONOCYTES % (AUTO) 9.8 %; NEUTROPHILS # (AUTO) 9.1 10^3/uL (1.5-6.6); NEUTROPHILS % (AUTO) 70.2 %; PLT - PLATELET COUNT 284 10^3/uL (130-450); RED BLOOD COUNT 4.17 10^6/uL (4.70-6.10); RED CELL DISTRIBUTION WIDTH 12.6 % (12.0-15.0)
[2023-07-13] MEDS ORDERED: iohexoL-300 100 ML VIAL ONE (15:45)
[2023-07-13 15:48] LABS: CREATININE 0.9 mg/dL (0.6-1.3); POTASSIUM 3.9 mmol/L (3.5-4.5)
[2023-07-13 15:54] LABS: BILIRUBIN,URINE NEGATIVE (NEGATIVE); GLUCOSE, URINE (UA) NEGATIVE (NEGATIVE); KETONES,URINE (UA) NEGATIVE (NEGATIVE); LEUKOCYTE ESTERASE, URINE NEGATIVE (NEGATIVE); NITRITE,URINE NEGATIVE (NEGATIVE); OCCULT BLOOD,URINE NEGATIVE (NEGATIVE); PROTEIN,URINE 30 mg/dL (NEGATIVE); UROBILINOGEN,URINE 2 E.U./dL (NORMAL)
[2023-07-13 15:56] LABS: CLARITY,URINE CLEAR (CLEAR)
[2023-07-13] MEDS: AMOX/CLAV 875 MG/125 MG TABLET PO STA (15:59)
[2023-07-13 16:05] LABS: BACTERIA,URINE Rare /HPF (None Seen); MUCUS,URINE Moderate Strands; RBC,URINE None Seen /HPF (0-5); SQUAMOUS EPITHELIAL CELL,UR RARE Squamous (<= Few); WBC,URINE 0-3 /HPF (0-3)
[2023-07-13] MEDS: iohexoL-300 100 ML VIAL IVP ONE (16:17)
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
[2023-07-13 18:02] VITALS: BP 112/52; O2SAT 99
== END 2023-07-13 17:59 | disposition home or self-care (01) ==
LOC: ED 13:29
DX: J18.9 Pneumonia, unspecified organism (principal); S30.1XXA Contusion of abdominal wall, initial encounter; W20.8XXA Other cause of strike by thrown, projected or falling object, initial encounter; R06.00 Dyspnea, unspecified; F17.200 Nicotine dependence, unspecified, uncomplicated; Z88.2 Allergy status to sulfonamides
CPT/HCPCS: 36415; 71046; 74177; 80048; 81001; 85025; 87633; 94640; 94664; 96374; 99284; A9270; Q9967; 81003; 87086

== ENCOUNTER 2023-08-27 01:15 | Outpatient (CLI) | payer MEDICAID | END 2023-08-27 23:59 | disposition critical access hospital (66) | LOC: EMS 01:15 | DX: T78.02XA Anaphylactic reaction due to shellfish (crustaceans), initial encounter (principal); L50.0 Allergic urticaria; F15.90 Other stimulant use, unspecified, uncomplicated | CPT/HCPCS: A0425; A0427; A0999 ==

== ENCOUNTER 2023-08-27 01:30 | Emergency (ER) | payer MEDICAID ==
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
--- NOTE | 2023-08-27 02:00 | XRAY Report ---
PROCEDURE: Chest 1V INDICATIONS: dyspnea TECHNIQUE: One view of the chest was acquired. COMPARISON: None. FINDINGS: Surgical changes and devices: None. Lungs and pleura: No pleural effusions or pneumothorax. Lungs are clear. Mediastinum: Mediastinal contours appear normal. Heart size is normal. Bones and chest wall: No suspicious bony lesions. Overlying soft tissues appear unremarkable. IMPRESSION: No acute cardiopulmonary process. Reviewed by: Gatito Bullock MD on 08/27/2023 1:59 AM PDT Approved by: Gatito Bullock MD on 08/27/2023 1:59 AM PDT Station ID: [id number]
[2023-08-27 02:07] LABS: BASOPHILS % (AUTO) 0.2 %; EOSINOPHILS % (AUTO) 1.5 %; HCT - HEMATOCRIT 46.7 % (42.0-52.0); HGB - HEMOGLOBIN 15.6 g/dL (14.0-18.0); LYMPHOCYTES % (AUTO) 46.4 %; MEAN CORPUSCULAR HEMOGLOBIN 30.7 pg (27.0-31.0); MEAN CORPUSCULAR HGB CONC 33.4 g/dL (32.0-36.0); MEAN CORPUSCULAR VOLUME 91.9 fL (80.0-94.0); MEAN PLATELET VOLUME 9.3 fL (7.4-11.4); MONOCYTES % (AUTO) 5.1 %; NEUTROPHILS % (AUTO) 46.4 %; PLT - PLATELET COUNT 329 10^3/uL (130-450); RED BLOOD COUNT 5.08 10^6/uL (4.70-6.10); WHITE BLOOD COUNT 11.4 x10^3/uL (4.8-10.8)
[2023-08-27] MEDS: FAMOTIDINE 20 MG/2 ML VIAL IVP STA (02:08)
[2023-08-27 02:11] LABS: ABNORMAL LYMPHS % (MANUAL) 0 %; BAND NEUTROPHILS % (MANUAL) 0 %
[2023-08-27 02:17] LABS: ALBUMIN/GLOBULIN RATIO 1.3 (1.0-2.2); ALKALINE PHOSPHATASE 69 IU/L (42-121); ALT ALANINE AMINOTRANSFERASE 119 IU/L (10-60); AST ASPARTATE AMINOTRANSFERASE 80 IU/L (10-42); BILIRUBIN,TOTAL 1.1 mg/dL (0.2-1.0); BUN - BLOOD UREA NITROGEN 24 mg/dL (6-20); CALCIUM 9.1 mg/dL (8.5-10.3); CARBON DIOXIDE - CO2 27 mmol/L (21-32); CHLORIDE 103 mmol/L (101-111); CREATININE 1.4 mg/dL (0.6-1.3); ETOH - ETHANOL < 10.0 mg/dL; GFR - MDRD 55 (>89); GLUCOSE 153 mg/dL (74-104); LIPASE 29 U/L (11-82); POTASSIUM 3.5 mmol/L (3.5-4.5); SODIUM 139 mmol/L (135-145)
[2023-08-27 02:28] LABS: EOSINOPHILS # (MANUAL) 0.3 10^3/uL (0-0.7); LYMPHOCYTES # (MANUAL) 5.6 10^3/uL (1.5-3.5); LYMPHOCYTES % (MANUAL) 41 %; MONOCYTES # (MANUAL) 0.5 10^3/uL (0.0-1.0); RBC MORPHOLOGY (MULTIPLE) NORMAL APPEARANCE (NORMAL); REACTIVE LYMPHS % (MANUAL) 8 %
[2023-08-27 02:29] LABS: DIFFERENTIAL COMMENT MANUAL DIFFERENTIAL; PLATELET ESTIMATE, MANUAL NORMAL (130-450,000) (NORMAL)
[2023-08-27 04:18] VITALS: BP 138/77
[2023-08-27 04:46] VITALS: O2SAT 98
== END 2023-08-27 04:37 | disposition home or self-care (01) ==
LOC: EDUNIT# → ED 01:30
DX: T78.2XXA Anaphylactic shock, unspecified, initial encounter (principal); J45.909 Unspecified asthma, uncomplicated; F15.90 Other stimulant use, unspecified, uncomplicated; Z98.84 Bariatric surgery status; F17.200 Nicotine dependence, unspecified, uncomplicated
CPT/HCPCS: 36415; 80053; 82077; 83690; 85025; 96374; 99283

== ENCOUNTER 2023-09-30 16:03 | Outpatient (CLI) | payer MEDICAID | END 2023-09-30 23:59 | disposition critical access hospital (66) | LOC: EMS 16:03 | DX: K62.5 Hemorrhage of anus and rectum (principal); K62.89 Other specified diseases of anus and rectum | CPT/HCPCS: A0425; A0429; A0999 ==

== ENCOUNTER 2023-09-30 16:16 | Emergency (ER) | payer MEDICAID ==
[2023-09-30 17:12] VITALS: O2SAT 100
[2023-09-30] MEDS: SODIUM CHLORIDE 0.9% 1,000 ML IV STA (17:22)
[2023-09-30] MEDS: MORPHINE 2 MG/ML CARPUJECT IVP STA (17:24)
[2023-09-30 17:25] LABS: BASOPHILS % (AUTO) 0.4 %; EOSINOPHILS # (AUTO) 0.4 10^3/uL (0.0-0.7); EOSINOPHILS % (AUTO) 3.2 %; HCT - HEMATOCRIT 46.2 % (42.0-52.0); HGB - HEMOGLOBIN 14.9 g/dL (14.0-18.0); LYMPHOCYTES # (AUTO) 2.1 10^3/uL (1.5-3.5); LYMPHOCYTES % (AUTO) 19.1 %; MEAN CORPUSCULAR HEMOGLOBIN 30.1 pg (27.0-31.0); MEAN CORPUSCULAR HGB CONC 32.3 g/dL (32.0-36.0); MEAN CORPUSCULAR VOLUME 93.3 fL (80.0-94.0); MEAN PLATELET VOLUME 9.2 fL (7.4-11.4); MONOCYTES # (AUTO) 1.1 10^3/uL (0.0-1.0); NEUTROPHILS # (AUTO) 7.3 10^3/uL (1.5-6.6); PLT - PLATELET COUNT 227 10^3/uL (130-450); RED BLOOD COUNT 4.95 10^6/uL (4.70-6.10); RED CELL DISTRIBUTION WIDTH 13.1 % (12.0-15.0); WHITE BLOOD COUNT 10.9 x10^3/uL (4.8-10.8)
[2023-09-30 17:33] LABS: PARTIAL THROMBOPLASTIN TIME 29.7 secs (24.9-33.3)
[2023-09-30 17:39] LABS: ALBUMIN 3.9 g/dL (3.2-5.5); ALBUMIN/GLOBULIN RATIO 1.2 (1.0-2.2); CALCIUM 9.1 mg/dL (8.5-10.3); TOTAL PROTEIN 7.1 g/dL (6.4-8.9)
[2023-09-30 17:41] LABS: PT - PROTHROMBIN TIME 11.3 secs (9.9-12.6)
[2023-09-30] MEDS ORDERED: iohexoL-300 100 ML VIAL ONE (17:49)
--- NOTE | 2023-09-30 18:39 | CT Report ---
PROCEDURE: Abdomen/Pelvis W INDICATIONS: lower abd pain, GI bleed CONTRAST: [id number] 100ml TECHNIQUE: After the administration of intravenous contrast, a CT scan of the abdomen and pelvis was performed. Images were recorded and evaluated at appropriate window settings. Reformats: coronal and sagittal. F or radiation dose reduction, the following was used: automated exposure control, adjustment of mA and /or kV according to patient size. COMPARISON: 07/13/2023. FINDINGS: Image quality: Diagnostic. Lower chest: Unremarkable. Small hiatal hernia. Liver: No solid mass. Gallbladder and biliary tree: No radiopaque stones or wall thickening. No biliary dilation. Spleen: No splenomegaly. Pancreas: No pancreatic ductal dilation. Adrenals: No adrenal nodule. Kidneys and ureters: No hydronephrosis. No renal cystic lesion which requires follow up. No solid mas s. Bilateral ureters are normal in course and caliber. Stomach, bowel and peritoneum: There is moderate circumferential wall thickening of the distal colon and rectum with associated inflammatory stranding. Mild reactive pelvic free fluid. No abscess format ion or perforation identified. No evidence for small bowel obstruction. Normal appendix. Lymph nodes: No central or retroperitoneal adenopathy. Vessels: No infrarenal aortic aneurysm. PELVIS Reproductive organs: Unremarkable. Bladder: No abnormal wall thickening, accounting for underdistention. Pelvic lymph nodes: No pelvic adenopathy by size criteria. Bones: No aggressive osseous abnormality. Other: No significant ventral or inguinal hernia. IMPRESSION: Circumferential wall thickening of the distal sigmoid colon and rectum compatible with proctocolitis either infectious or inflammatory etiology. Associated reactive free fluid and likely reactive lymph nodes. No evidence for perforation or abscess formation. Reviewed by: Jordan Ingram MD on 09/30/2023 6:38 PM PDT Approved by: Jordan Ingram MD on 09/30/2023 6:38 PM PDT Station ID: [id number]
[2023-09-30 19:04] LABS: BILIRUBIN,URINE NEGATIVE (NEGATIVE); GLUCOSE, URINE (UA) NEGATIVE (NEGATIVE); KETONES,URINE (UA) NEGATIVE (NEGATIVE); LEUKOCYTE ESTERASE, URINE NEGATIVE (NEGATIVE); NITRITE,URINE NEGATIVE (NEGATIVE); OCCULT BLOOD,URINE NEGATIVE (NEGATIVE); PROTEIN,URINE NEGATIVE (NEGATIVE); UROBILINOGEN,URINE 1 (NORMAL) E.U./dL (NORMAL)
[2023-09-30 19:05] LABS: CLARITY,URINE CLEAR (CLEAR)
[2023-09-30] MEDS: iohexoL-300 100 ML VIAL IVP ONE (19:07)
[2023-09-30 19:21] LABS: AMPHETAMINE SCREEN,URINE POSITIVE (NEGATIVE); BARBITURATE SCREEN,UR NEGATIVE (NEGATIVE); BENZODIAZEPINES SCREEN, URINE NEGATIVE (NEGATIVE); BUPRENORPHINE SCREEN, URINE NEGATIVE (NEGATIVE); COCAINE SCREEN URINE NEGATIVE (NEGATIVE); METHADONE SCREEN, URINE NEGATIVE (NEGATIVE); METHAMPHETAMINES SCREEN, URINE POSITIVE (NEGATIVE); OPIATE SCREEN, URINE POSITIVE (NEGATIVE); OXYCODONE SCREEN, URINE NEGATIVE (NEGATIVE); THC CANNABINOID SCREEN, URINE NEGATIVE (NEGATIVE); TRICYCLIC ANTIDEPRESSANT,URINE NEGATIVE (NEGATIVE)
--- NOTE | 2023-09-30 19:34 | ED Physician Documentation ---
PD HPI ABD PAIN - Stated complaint Stated Complaint: RECTAL BLEED - Chief complaint Chief Complaint: Abd Pain - History obtained from History obtained from: Patient, Family - History of Present Illness Timing - onset: How many days ago (3) Timing - duration: Days (3) Timing - details: Gradual onset Pain level max: 9 Pain level now: 9 Quality: Pain Location: Other (rectal) Associated symptoms: Diarrhea, Hematochezia. No: Fever, Nausea, Vomiting, Hematemesis, Constipation, Melena, Dysuria - Additional information Additional information: 43-year-old male complains of rectal pain. He states he has had bright red blood per rectum. He states that he feels like he is having difficulty having a bowel movement secondary to pain. Denies any known trauma to the anus. Denies any anal intercourse or any objects placed into his anus or rectum. He states he did pass out last night. He denies any drug use. Denies any STD exposure. Review of Systems Constitutional: denies: Fever, Chills Throat: denies: Sore throat Cardiac: denies: Chest pain / pressure Respiratory: denies: Cough Skin: denies: Rash Musculoskeletal: denies: Neck pain, Back pain Neurologic: denies: Headache PD PAST MEDICAL HISTORY - Past Medical History Cardiovascular: None Respiratory: Asthma Endocrine/Autoimmune: None GI: None : None HEENT: None Psych: None Musculoskeletal: Chronic back pain Derm: None - Past Surgical History Past Surgical History: Yes General: Gastric surgery - Present Medications Home Medications: Ambulatory Orders Medication Instructions Recorded Confirmed Amox/Clav 875/125 [Augmentin] 1 each PO Q8H #30 tablet 09/30/23 Oxycodone HCl/Acetaminophen 1 - 2 each PO Q6H PRN #14 tablet 09/30/23 [Percocet 5-325 mg Tablet] MDD 6 tabs predniSONE [Deltasone] 10 mg PO [id number] #42 tab 09/30/23 - Allergies Allergies/Adverse Reactions: Allergies Allergy/AdvReac Type Severity Reaction Status Date / Time Sulfa (Sulfonamide Allergy Severe Respiratory Verified 09/30/23 17:07 Antibiotics) shellfish derived Allergy Anaphylaxis Verified 09/30/23 17:07 - Social History Does the pt smoke?: Yes Smoking Status: Current every day smoker Does the pt drink ETOH?: No Does the pt have substance abuse?: No - Immunizations Immunizations are current?: Yes Immunizations: TDAP current <10years - POLST Patient has POLST: No PD ED PE NORMAL - Vitals Vital signs reviewed: Yes - General General: Alert and oriented X 3, No acute distress, Well developed/nourished - HEENT HEENT: PERRL, Moist mucous membranes - Neck Neck: Supple, no meningeal sign - Cardiac Cardiac: RRR, Strong equal pulses - Respiratory Respiratory: No respiratory distress, Clear bilaterally - Abdomen Abdomen: Soft, Non tender, Non distended - Male Male : Other (Small amount of bright red blood in the rectal vault, very faint. No fissures, visible hemorrhoids. No prostate tenderness.) - Back Back: No CVA TTP, No spinal TTP - Derm Derm: Warm and dry - Extremities Extremities: No edema - Neuro Neuro: Alert and oriented X 3 Results - Vitals Vitals: Vital Signs - 24 hr 09/30/23 09/30/23 09/30/23 16:57 18:12 20:15 Temperature 36.9 C Heart Rate 77 63 74 Respiratory 18 14 18 Rate Blood Pressure 124/71 104/59 L 132/68 H O2 Saturation 100 100 100 Oxygen O2 Source Room air - Labs Labs: Microbiology 09/30/23 16:50 Occult Blood - Final Stool Laboratory Tests 09/30/23 09/30/23 09/30/23 17:09 17:09 17:09 WBC 10.9 H RBC 4.95 Hgb 14.9 Hct 46.2 MCV 93.3 MCH 30.1 MCHC 32.3 RDW 13.1 Plt Count 227 MPV 9.2 Neut # (Auto) 7.3 H Lymph # (Auto) 2.1 [place] # (Auto) 1.1 H Eos # (Auto) 0.4 Baso # (Auto) 0.0 Absolute Nucleated RBC 0.00 Nucleated RBC % 0.0 PT 11.3 INR 1.0 APTT 29.7 Sodium 136 Potassium 4.0 Chloride 102 Carbon Dioxide 28 Anion Gap 6.0 BUN 18 Creatinine 1.0 Estimated GFR (MDRD) 81 L Glucose 73 L Calcium 9.1 Total Bilirubin 1.0 AST 69 H ALT 150 H Alkaline Phosphatase 61 Total Protein 7.1 Albumin 3.9 Globulin 3.2 Albumin/Globulin Ratio 1.2 Lipase 23 Urine Color Urine Clarity Urine pH Ur Specific [place] Urine Protein Urine Glucose (UA) Urine Ketones Urine Occult Blood Urine Nitrite Urine Bilirubin Urine Urobilinogen Ur Leukocyte Esterase Ur Microscopic Review Urine Culture Comments Urine Opiates Screen Ur Buprenorphine Scrn Ur Oxycodone Screen Urine Methadone Screen Ur Barbiturates Screen Ur Tricyclics Screen Ur Phencyclidine Scrn Ur Amphetamine Screen U Methamphetamines Scrn U Benzodiazepines Scrn Urine Cocaine Screen U Cannabinoids Screen Ur Drug Screen Comment 09/30/23 18:56 WBC RBC Hgb Hct MCV MCH MCHC RDW Plt Count MPV Neut # (Auto) Lymph # (Auto) [place] # (Auto) Eos # (Auto) Baso # (Auto) Absolute Nucleated RBC Nucleated RBC % PT INR APTT Sodium Potassium Chloride Carbon Dioxide Anion Gap BUN Creatinine Estimated GFR (MDRD) Glucose Calcium Total Bilirubin AST ALT Alkaline Phosphatase Total Protein Albumin Globulin Albumin/Globulin Ratio Lipase Urine Color YELLOW Urine Clarity CLEAR Urine pH 6.0 Ur Specific [place] 1.020 Urine Protein NEGATIVE Urine Glucose (UA) NEGATIVE Urine Ketones NEGATIVE Urine Occult Blood NEGATIVE Urine Nitrite NEGATIVE Urine Bilirubin NEGATIVE Urine Urobilinogen 1 (NORMAL) Ur Leukocyte Esterase NEGATIVE Ur Microscopic Review NOT INDICATED Urine Culture Comments NOT INDICATED Urine Opiates Screen POSITIVE H Ur Buprenorphine Scrn NEGATIVE Ur Oxycodone Screen NEGATIVE Urine Methadone Screen NEGATIVE Ur Barbiturates Screen NEGATIVE Ur Tricyclics Screen NEGATIVE Ur Phencyclidine Scrn NEGATIVE Ur Amphetamine Screen POSITIVE H U Methamphetamines Scrn POSITIVE H U Benzodiazepines Scrn NEGATIVE Urine Cocaine Screen NEGATIVE U Cannabinoids Screen NEGATIVE Ur Drug Screen Comment CUTOFF CONC BELOW: - Rads (name of study) CT abdomen pelvis Relevant Findings:: Final report received, See rad report PD Medical Decision Making - ED course Complexity details: reviewed results, re-evaluated patient, considered differential, d/w patient, d/w family ED course: 43-year-old male with what appears to be proctocolitis on CT scan. His mother states that there is a family history of ulcerative colitis, therefore we will treat with steroids in addition to antibiotics. Given a dose of Rocephin IV here. Given Solu-Medrol here. We will place on a steroid taper. Will also place on Augmentin. Patient denies any STD exposure or any anal intercourse. Patient does have track diamond on the arms and is positive for methamphetamines and opiates. He initially denied any drug use. Patient is well-appearing, nontoxic. Afebrile. Will prescribe pain medication, nausea medication and antibiotics for home. Recommend colonoscopy once symptoms have improved. He will return if he worsens. Patient counseled regarding signs and symptoms for which I believe and urgent re-evaluation would be necessary. Patient with good understanding of and agreement to plan and is comfortable going home at this time This document was made in part using voice recognition software. While efforts are made to proofread this document, sound alike and grammatical errors may occur. Departure - Departure Disposition: 01 Home, Self Care Clinical Impression: Proctocolitis Condition: Good Instructions: Sitz Bath, ED Gastroenteritis Bacterial, ED Colitis Ulcerative Follow-Up: your,doctor in 1 week [Other] Prescriptions: Amox/Clav 875/125 [Augmentin] 1 each PO Q8H #30 tablet predniSONE [Deltasone] 10 mg PO [id number] #42 tab Oxycodone HCl/Acetaminophen [Percocet 5-325 mg Tablet] 1 - 2 each PO Q6H PRN #14 tablet MDD 6 tabs PRN Reason: pain Comments: Your prescriptions were sent to [facility] in [place]. Please follow-up with your doctor for further care. It is recommended that you have a colonoscopy after treatment. Your CT scan shows inflammation of your rectum and lower colon, this can be due to an infection or an inflammatory bowel disease such as ulcerative colitis. Therefore we are treating you with antibiotics and steroids. Take all antibiotics until gone even if you are feeling better. You will want to stay on stool softeners as well to prevent any constipation. Sitz bath's can help with pain as well. Forms: PCP List Discharge Date/Time: 09/30/23 20:15
[2023-09-30] MEDS: cefTRIAXone 1 GM VIAL IVP STA (19:36)
[2023-09-30] MEDS: methylPREDNISolone SUCCINATE 125 MG/2 ML VIAL IVP STA (19:43)
[2023-09-30] MEDS: oxyCODONE 5 MG TABLET PO STA (19:43)
[2023-09-30 20:42] VITALS: BP 132/68
== END 2023-09-30 20:15 | disposition home or self-care (01) ==
LOC: EDUNIT# → ED 16:16
DX: K51.30 Ulcerative (chronic) rectosigmoiditis without complications (principal); J45.909 Unspecified asthma, uncomplicated; Z98.84 Bariatric surgery status; F17.200 Nicotine dependence, unspecified, uncomplicated
CPT/HCPCS: 36415; 74177; 80053; 80306; 81003; 82272; 83690; 85025; 85610; 85730; 96374; 96375; 99283; 99284; A9270; Q9967; 81001; 87086